=== PATIENT | male | born 1965 | race Caucasian/White ===

== ENCOUNTER 2016-12-31 22:09 | Emergency (ER) | payer BC ==
[2016-12-31 22:17] VITALS: BMI 25.3
[2016-12-31 22:25] VITALS: TEMP 98.2
[2016-12-31 22:57] LABS: BASO # 0.01 K/mm3 (0.0-2.0); BASO % 0.3 % (0.0-3.0); EOS # 0.1 (0.0-0.7); EOS % 3.6 % (1.5-5.0); GRAN # 1.61 (1.4-6.5); GRAN % 41.3 % (50.0-68.0); HEMOGLOBIN 13.6 gm/dL (14.0-18.0); LYMPH # 1.7 (1.2-3.4); MEAN CELL VOLUME 85.5 fL (80.0-105.0); MEAN CORPUSCULAR HEMOGLOBIN 29.1 pg (25.0-35.0); MEAN PLATELET VOLUME 9.6 fl (7.0-11.0); MONO # 0.4 (0.1-0.6); MONO % 10.8 % (1.0-6.0); PLATELET COUNT 179 10^3/uL (120.0-450.0); RBC 4.68 10^6/uL (3.5-6.1); RED CELL DISTRIBUTION WIDTH 13.1 % (11.5-14.5); WHITE BLOOD COUNT 3.9 10^3/ul (4.5-11.0)
[2016-12-31 23:08] LABS: ALB/GLOB RATIO 1.4 (1.1-1.8); ALBUMIN 3.9 g/dL (3.0-4.8); ALT/SGPT 33 U/L (7-56); AST/SGOT 26 U/L (15-59); BLOOD UREA NITROGEN 20 mg/dL (7-21); GFR AFRICAN-AMERICAN > 60; GFR NON-AFRICAN AMERICAN > 60
--- NOTE | 2016-12-31 23:10 | ED PDOC ---
Arrival/HPI - General Chief Complaint: Chest Pain Time Seen by Provider: 12/31/16 22:10 Historian: Patient - History of Present Illness Narrative History of Present Illness (Text): 12/31/16 23:06 Mukesh Chaparro is a 51 year old male who presents to the emergency department for evaluation of 3 day duration of left sided chest pain radiating down left arm. Patient also reports of occasional numbness to 1st, 2nd and 3rd left digits. Reports that pain is worsened with deep inspiration. Admits to recreational marijuana use. Denies any fever, chills, shortness of breath, nausea, vomiting, diarrhea, diaphoresis, urinary symptoms, or any other complaints at this time. Time/Duration: Other (3 days ) Symptom Onset: Gradual Symptom Course: Unchanged Severity Level: Mild Activities at Onset: Light Past Medical History - Provider Review Nursing Documentation Reviewed: Yes - Infectious Disease Hx of Infectious Diseases: None - Tetanus Immunization Tetanus Immunization: Unknown - Cardiac Hx Pacemaker: No - Neurological Hx Paralysis: No - Hematological/Oncological Hx Blood Transfusions: No Hx Blood Transfusion Reaction: No - Musculoskeletal/Rheumatological Hx Musculoskeletal Disorders: No - Psychiatric Hx Emotional Abuse: No Hx Physical Abuse: No Hx Substance Use: Yes (marijuana, LAST USED ON 01/18/16) - Past Surgical History Past Surgical History: No Previous - Surgical History Hx Tonsillectomy: Yes - Anesthesia Hx Anesthesia: Yes Hx Anesthesia Reactions: No Hx Malignant Hyperthermia: No - Suicidal Assessment Feels Threatened In Home Enviroment: No Family/Social History - Physician Review Nursing Documentation Reviewed: Yes Family/Social History: No Known Family HX Smoking Status: Current Some Days Smoker Hx Alcohol Use: Yes (OCCASIONAL) Hx Substance Use: Yes (marijuana, LAST USED ON 01/18/16) Hx Substance Use Treatment: No Allergies/Home Meds Allergies/Adverse Reactions: Allergies No Known Allergies Allergy (Verified 11/16/13 21:31) Home Medications: Home Meds Medication Instructions Recorded Confirmed No Known Home Med 12/31/16 12/31/16 Review of Systems - Physician Review All systems were reviewed & negative as marked: Yes - Review of Systems Constitutional: Normal. absent: Fatigue, Fevers Respiratory: Normal. absent: SOB, Cough, Sputum Cardiovascular: Chest Pain. absent: Palpitations Gastrointestinal: Normal. absent: Abdominal Pain, Diarrhea, Nausea, Vomiting Musculoskeletal: Other (radiating down left arm ) Neurological: Normal. absent: Headache, Dizziness Endocrine: Normal Psychiatric: Normal Physical Exam Vital Signs Reviewed: Yes Vital Signs Temp Pulse Resp BP Pulse Ox 01/01/17 00:38 55 L 22 126/66 98 12/31/16 23:28 55 L 21 114/74 99 12/31/16 22:24 98.2 F 65 18 125/83 99 Temperature: Afebrile Blood Pressure: Normal Pulse: Regular Respiratory Rate: Normal Appearance: Positive for: Well-Appearing, Non-Toxic, Comfortable Pain Distress: None Mental Status: Positive for: Alert and Oriented X 3 - Systems Exam Head: Present: Atraumatic, Normocephalic Pupils: Present: PERRL Conjunctiva: Present: Normal Mouth: Present: Moist Mucous Membranes Respiratory/Chest: Present: Clear to Auscultation, Good Air Exchange. No: Respiratory Distress, Accessory Muscle Use Cardiovascular: Present: Regular Rate and Rhythm, Normal S1, S2. No: Murmurs Abdomen: Present: Normal Bowel Sounds. No: Tenderness, Distention, Peritoneal Signs Upper Extremity: Present: Normal Inspection. No: Cyanosis, Edema Lower Extremity: Present: Normal Inspection. No: Edema Neurological: Present: GCS=15, CN II-XII Intact, Speech Normal, Motor Func Grossly Intact, Normal Sensory Function Skin: Present: Warm, Dry, Normal Color. No: Rashes Psychiatric: Present: Alert, Oriented x 3, Normal Insight, Normal Concentration Medical Decision Making ED Course and Treatment: 12/31/16 23:11 Impression: A 51 year old male who presents to the emergency department complaining of left sided chest pain radiating down left hand for past 3 days. Plan: -- EKG -- Labs, cardiac enzymes -- Chest X-ray -- Reassess and disposition Progress Notes: 12/31/16 23:11 EKG reviewed by me: NSR @ 71 bpm. Minimal voltage criteria for LVH. 01/01/17 00:54 On re-evaluation, patient feels better and is in no acute distress. I have discussed the results and plan with the patient, who expresses understanding. Patient in agreement with plan to be discharged home. Patient is stable for discharge. Patient was instructed to follow up with physician or return if symptoms worsen or new concerning symptoms arise. - Lab Interpretations Lab Results: 12/31/16 22:30 12/31/16 22:30 Lab Results 12/31/16 22:30: Phosphorus 3.4, Magnesium 1.9 12/31/16 22:30: Sodium 139, Potassium 3.9, Chloride 104, Carbon Dioxide 26, Anion Gap 13, BUN 20, Creatinine 0.9, Est GFR ( Amer) > 60, Est GFR (Non- Af Amer) > 60, Random Glucose 103, Calcium 9.0, Total Bilirubin 0.4, AST 26, ALT 33, Alkaline Phosphatase 61, Lactate Dehydrogenase 445, Total Creatine Kinase 150, Troponin I < 0.01, Total Protein 6.6, Albumin 3.9, Globulin 2.7, Albumin/Globulin Ratio 1.4 12/31/16 22:30: PT 11.6, INR 1.07, APTT 27.7 12/31/16 22:30: WBC 3.9 L, RBC 4.68, Hgb 13.6 L, Hct 40.0 L, MCV 85.5, MCH 29.1 , MCHC 34.0, RDW 13.1, Plt Count 179, MPV 9.6, Gran % 41.3 L, Lymph % (Auto) 44.0 H, [place] % (Auto) 10.8 H, Eos % (Auto) 3.6, Baso % (Auto) 0.3, Gran # 1.61, Lymph # 1.7, [place] # 0.4, Eos # 0.1, Baso # 0.01 I have reviewed the lab results: Yes - RAD Interpretation Radiology Orders: 12/31/16 22:59 CHEST PORTABLE [RAD] Stat - EKG Interpretation Interpreted by ED Physician: Yes Type: 12 lead EKG - Scribe Statement The provider has reviewed the documentation as recorded by the Vira Cornelius Provider Attestation: Provider Scribe Attestation: All medical record entries made by the Vira were at my direction and personally dictated by me. I have reviewed the chart and agree that the record accurately reflects my personal performance of the history, physical exam, medical decision making, and the department course for this patient. I have also personally directed, reviewed, and agree with the discharge instructions and disposition. Disposition/Present on Arrival - Present on Arrival Any Indicators Present on Arrival: No History of DVT/PE: No History of Uncontrolled Diabetes: No Urinary Catheter: No History of Decub. Ulcer: No History Surgical Site Infection Following: None - Disposition Have Diagnosis and Disposition been Completed?: Yes Diagnosis: Chest pain Disposition: AGAINST MEDICAL ADVICE Disposition Time: 00:55 Condition: GOOD Discharge Instructions (ExitCare): Chest Pain (ED) Referrals: Ro Gomez DO [Primary Care Provider] - Follow up with primary Forms: WORK NOTE
[2016-12-31 23:17] LABS: INR 1.07 (0.93-1.08); PARTIAL THROMBOPLASTIN TIME 27.7 Seconds (23.7-30.8); PROTHROMBIN TIME 11.6 Seconds (9.9-11.8)
[2016-12-31 23:23] LABS: TROPONIN I < 0.01 ng/mL
[2016-12-31 23:31] VITALS: PULSE 55
[2017-01-01 00:03] LABS: MAGNESIUM 1.9 mg/dL (1.7-2.2)
[2017-01-01 00:38] VITALS: BP 126/66; RESP 22; O2SAT 98
--- NOTE | 2017-01-01 07:42 | RAD ---
HISTORY: CP COMPARISON: No prior. FINDINGS: LUNGS: No active pulmonary disease. PLEURA: No significant pleural effusion identified, no pneumothorax apparent. CARDIOVASCULAR: Normal. OSSEOUS STRUCTURES: No significant abnormalities. VISUALIZED UPPER ABDOMEN: Normal. OTHER FINDINGS: None. IMPRESSION: No active disease.
--- NOTE | 2017-01-01 12:40 | CARD ---
APPROVED REPORT EKG Measurement Heart [id number] IL [id number] <Conclusion> Normal sinus rhythm Minimal voltage criteria for LVH, may be normal variant Borderline ECG
== END 2017-01-01 00:45 | disposition left against medical advice (07) ==
LOC: ED 22:09
DX: R07.9 Chest pain, unspecified (principal); F17.200 Nicotine dependence, unspecified, uncomplicated

== ENCOUNTER 2018-10-19 19:28 | Emergency (ER) | payer BC ==
[2018-10-19 19:29] VITALS: BMI 25.3
--- NOTE | 2018-10-19 20:19 | ED PDOC ---
Arrival/HPI - General Chief Complaint: Male Genitourinary Time Seen by Provider: 10/19/18 19:29 Historian: Patient - History of Present Illness Narrative History of Present Illness (Text): 53 yr old male p/w hematuria and previous L sided flank pain. He notes hematuria 1 hour prior, cranberry colored, without clots, first time occurrence. He denies any fall or trauma or body aches or recent weight loss. No hx of kidney stones, but pt notes that he does drink alot of soda. He denies any difficulty urinating. No fullness in his suprapubic area or rectal area or dark or bloody stool. No fever, chills or night sweat. No chest pain or constipation or diarrhea. He notes that he does not want any pain meds at this time No other complaints PMD: Jason Past Medical History - Provider Review Nursing Documentation Reviewed: Yes - Infectious Disease Hx of Infectious Diseases: None - Tetanus Immunization Tetanus Immunization: Unknown - Cardiac Hx Pacemaker: No - Neurological Hx Paralysis: No - Hematological/Oncological Hx Blood Transfusions: No Hx Blood Transfusion Reaction: No - Musculoskeletal/Rheumatological Hx Musculoskeletal Disorders: No - Psychiatric Hx Emotional Abuse: No Hx Physical Abuse: No Hx Substance Use: Yes (marijuana, LAST USED ON 01/18/16) - Past Surgical History Past Surgical History: No Previous - Surgical History Hx Tonsillectomy: Yes - Anesthesia Hx Anesthesia: Yes Hx Anesthesia Reactions: No Hx Malignant Hyperthermia: No - Suicidal Assessment Feels Threatened In Home Enviroment: No Family/Social History - Physician Review Nursing Documentation Reviewed: Yes Family/Social History: Unknown Family HX Smoking Status: Current Some Days Smoker Hx Alcohol Use: Yes (OCCASIONAL) Hx Substance Use: Yes (marijuana, LAST USED ON 01/18/16) Hx Substance Use Treatment: No Allergies/Home Meds Allergies/Adverse Reactions: Allergies No Known Allergies Allergy (Verified 11/16/13 21:31) Review of Systems - Review of Systems Constitutional: absent: Fatigue, Weight Change, Fevers, Night Sweats Eyes: absent: Vision Changes, Photophobia ENT: absent: Hearing Changes, Tinnitus Respiratory: absent: SOB, Cough Cardiovascular: absent: Chest Pain, Palpitations Gastrointestinal: absent: Abdominal Pain, Stool Changes, Diarrhea, Nausea, Vomiting, Appetite Changes, Hematochezia, Hematemesis, Anorexia Genitourinary Male: absent: Dysuria, Frequency, Hematuria Musculoskeletal: absent: Arthralgias, Back Pain, Neck Pain Skin: absent: Rash, Pruritis Neurological: absent: Headache, Dizziness Psychiatric: absent: Anxiety, Depression, Suicidal Ideation Physical Exam Vital Signs Temp Pulse Resp Pulse Ox 10/19/18 19:52 97.9 F 77 18 100 Temperature: Afebrile Blood Pressure: Normal Pulse: Regular Respiratory Rate: Normal Appearance: Positive for: Well-Appearing, Non-Toxic, Comfortable Pain Distress: None Mental Status: Positive for: Alert and Oriented X 3 - Systems Exam Head: Present: Atraumatic, Normocephalic Pupils: Present: PERRL Extroacular Muscles: Present: EOMI Conjunctiva: Present: Normal Mouth: Present: Moist Mucous Membranes Neck: Present: Normal Range of Motion. No: Meningeal Signs, MIDLINE TENDERNESS Respiratory/Chest: Present: Clear to Auscultation, Good Air Exchange. No: Respiratory Distress, Accessory Muscle Use Cardiovascular: Present: Regular Rate and Rhythm, Normal S1, S2. No: Murmurs Abdomen: Present: Tenderness (suprapubic). No: Distention, Peritoneal Signs Rectal: Present: Normal Rectal Tone. No: Gross Blood Genitourinary Male: Present: Normal External Genitalia. No: Lesions, Penile Discharge, Testicle Tenderness, Penile Swelling, Masses, Testicle Swelling, Prostate Tenderness, Prostate Enlargement Back: Present: Normal Inspection. No: CVA Tenderness, Midline Tenderness, Paraspinal Tenderness Upper Extremity: Present: Normal Inspection. No: Cyanosis, Edema Lower Extremity: Present: Normal Inspection. No: Edema Neurological: Present: GCS=15, Speech Normal Skin: Present: Warm, Dry, Normal Color. No: Rashes Psychiatric: Present: Alert, Oriented x 3, Normal Insight, Normal Concentration Medical Decision Making ED Course and Treatment: 53 yr old male w/ no ppmhx p/w previous L sided flank pain followed by suprapubic pain currently. No current pain. No midline tenderness to spine / CVAT or paraspinal pain on palpation. Mild suprapubic pain on palpation, abd ot herwise non-ttp. No penile d/c and pt denies any hx of stds. Only has sex one with sexual partner. No testicular pain or penile pain. Dysuria without any clots noted in urine. ?UTI vs MASS vs Kidney stone. Pending imaging and labs, pt in nad 10/19/18 20:35 CBC / CMP largely unremarkable cr wnl, ck wnl UA w/ UTI + RBC + bacteria: No CVAT on exam however. Likely compicated UTI pending imaging. 10/19/2018 20:47 Abd/Pelvis CT IMPRESSION: No acute intra-abdominal or pelvic abnormality. Dictator: Sujata Lam MD prostate exam unremarkable pt in NAD, will rx pt w/ abx and d/c pt home with f/u with urology and pmd, pt is in NAD, agreeable to plan. - Lab Interpretations I have reviewed the lab results: Yes - RAD Interpretation Radiology Orders: 10/19/18 20:12 ABDOMEN & PELVIS [ABD & PELVIS W/O PO OR IV CONT] [CT] Stat Disposition/Present on Arrival - Present on Arrival Any Indicators Present on Arrival: No History of DVT/PE: No History of Uncontrolled Diabetes: No Urinary Catheter: No History of Decub. Ulcer: No History Surgical Site Infection Following: None - Disposition Have Diagnosis and Disposition been Completed?: Yes Diagnosis: Hematuria, UTI (urinary tract infection) Disposition Time: 21:01 Patient Problems: Current Active Problems Problem Status Onset Hematuria Acute UTI (urinary tract infection) Acute Condition: STABLE Discharge Instructions (ExitCare): Urinary Tract Infection, Adult (DC), Blood in the Urine (Hematuria), Adult (DC) Print Language: GABONESE Additional Instructions: FOLLOW UP WITH Dr. BOBBY SOON POSSIBLE PRESTON GRIMES, thank you for letting us take care of you today. Your provider was Hardeep Johnson and you were treated for MALE GENITOURINARY, BLOOD IN URINE. The emergency medical care you received today was directed at your acute symptoms. If you were prescribed any medication, please fill it and take as directed. It may take several days for your symptoms to resolve. Return to the Emergency Department if your symptoms worsen, do not improve, or if you have any other problems. Please contact your doctor or call one of the physicians/clinics you have been referred to that are listed on the Patient Visit Information form that is included in your discharge packet. Bring any paperwork you were given at discharge with you along with any medications you are taking to your follow up visit. Our treatment cannot replace ongoing medical care by a primary care provider outside of the emergency department. Thank you for allowing the [facility] team to be part of your care today. If you had an X-Ray or CT scan: A Radiologist will review the ED reading if any change in treatment is needed we will contact you. If you had a blood, urine, or wound culture: It will take several days for the results, if any change in treatment is needed we will contact you. If you had an STI test: It will take 48 hours for the results. Please call after 1 week if you have not heard back. Prescriptions: Ciprofloxacin [Cipro] 500 mg PO BID 14 Days #28 tab Referrals: [facility] [Outside] - Follow up with primary Director Data Service [Outside] - Follow up with primary [facility] [place] [Outside] - Follow up with primary Tawanda Bobby MD [Staff Provider] - Follow up with primary Ro Gomez DO [Doctor Osteopathy] - Follow up with primary Forms: [facility] (Nicaraguan), WORK NOTE
[2018-10-19 20:20] VITALS: BP 131/97; PULSE 77; RESP 18; TEMP 97.9; O2SAT 100
[2018-10-19 20:22] LABS: BASO # 0.02 K/mm3 (0.0-2.0); BASO % 0.3 % (0.0-3.0); EOS # 0.1 (0.0-0.7); EOS % 1.8 % (1.5-5.0); HEMOGLOBIN 15.3 g/dL (14.0-18.0); LYMPH # 1.8 (1.2-3.4); LYMPH % 26.5 % (22.0-35.0); MEAN CELL VOLUME 86.2 fl (80.0-105.0); MEAN CORPUSCULAR HGB CONC 33.6 g/dl (31.0-37.0); MEAN PLATELET VOLUME 10.3 fl (7.0-11.0); MONO # 0.6 (0.1-0.6); MONO % 8.1 % (1.0-6.0); RBC 5.28 10^6/uL (3.5-6.1); RED CELL DISTRIBUTION WIDTH 13.1 % (11.5-14.5); WHITE BLOOD COUNT 6.8 10^3/uL (4.5-11.0)
[2018-10-19 20:26] LABS: PH,URINE 5.5 (4.7-8.0); URINE APPEARANCE BLOODY (CLEAR); URINE BILIRUBIN MODERATE (NEGATIVE); URINE BLOOD LARGE (NEGATIVE); URINE COLOR RED (YELLOW); URINE GLUCOSE (UA) 100 mg/dL (NEGATIVE); URINE LEUKOCYTE ESTERASE TRACE Leu/uL (NEGATIVE); URINE PROTEIN >=300 mg/dL (<30 mg/dL)
[2018-10-19 20:27] LABS: URINE BACTERIA MANY /hpf; URINE RBC TNTC /hpf (0-2); URINE WBC 15 - 20 /hpf (0-6)
[2018-10-19 20:33] LABS: ALB/GLOB RATIO 1.7 (1.1-1.8); ALBUMIN 4.7 g/dL (3.0-4.8); ALT/SGPT 32 U/L (7-56); AST/SGOT 27 U/L (17-59); BLOOD UREA NITROGEN 17 mg/dL (7-21); CALCIUM 9.9 mg/dL (8.4-10.5); GFR NON-AFRICAN AMERICAN > 60
--- NOTE | 2018-10-20 10:26 | CT ---
Date of service: 10/19/2018 PROCEDURE: CT Abdomen and Pelvis without intravenous contrast HISTORY: hematuria, previous L back pain, now suprapubic COMPARISON: Not available TECHNIQUE: Without contrast.. Contrast dose: 0 Radiation dose: Total exam DLP = 516.88 mGy-cm. This CT exam was performed using one or more of the following dose reduction techniques: Automated exposure control, adjustment of the mA and/or kV according to patient size, and/or use of iterative reconstruction technique. FINDINGS: LOWER THORAX: Unremarkable. LIVER: Unremarkable. No gross lesion or ductal dilatation. GALLBLADDER AND BILE DUCTS: Unremarkable. PANCREAS: Unremarkable. No gross lesion or ductal dilatation. SPLEEN: Unremarkable. ADRENALS: Unremarkable. No mass. KIDNEYS AND URETERS: Unremarkable. No hydronephrosis. No solid mass. VASCULATURE: Unremarkable. No aortic aneurysm. No aortic atherosclerotic calcification or mural plaque present. BOWEL: Unremarkable. No obstruction. No gross mural thickening. APPENDIX: Unremarkable. Normal appendix. PERITONEUM: Unremarkable. No free fluid. No free air. LYMPH NODES: Unremarkable. No enlarged lymph nodes. BLADDER: Bladder is significant for a small amount of high attenuation material seen near the right bladder base. This is not so hyperdense as to represent calcification. This could represent bladder neoplasm. Further evaluation with cystoscopy is suggested. REPRODUCTIVE: Normal prostate BONES: No acute fracture. OTHER FINDINGS: None. IMPRESSION: Small amount of high attenuation material within the urinary bladder, near the right base. This does not represent a calculus. The possibility of bladder neoplasm should be considered. Further evaluation with cystoscopy is advised. No additional abnormality is identified. The preliminary findings for this examination were reported by [facility] at 8:47 p.m. on 10/19/2018. There is discordance of this report with the preliminary findings. Finding of high attenuation material within the urinary bladder was not reported in the preliminary report of this examination.
== END 2018-10-19 21:23 | disposition home or self-care (01) ==
LOC: ED 19:28
DX: N39.0 Urinary tract infection, site not specified (principal); R31.9 Hematuria, unspecified